=== PATIENT | female | born 1945 | race Caucasian/White ===

== ENCOUNTER 2016-11-10 08:47 | Emergency (ER) | payer OTHER ==
[~2016-11-10] VITALS: Ht 162.6 cm; Wt 82.3 kg
[~2016-11-10 08:47] MED LIST: BIOFREEZE; CARDIZEM CD,CA120 MG PO; CLONAZEPAM0.5 MG PO; DEPAKOTE ER500 MG PO; DITROPAN5 MG PO; LAMOTRIGINE100 MG PO; LISINOPRIL5 MG PO; LO-DOSE ASPIRIN81 M2 PO; MIRALAX255 GM PO; OMEPRAZOLE20 MG PO; RIZATRIPTAN5 MG PO; TOPIRAMATE25 MG PO
[2016-11-10 09:49] LABS: EOSINOPHIL (%) 0.6 % (0-5); HEMATOCRIT 40.2 % (36.0-46.0); IMMATURE GRANULOCYTE (%) 0.2 % (0.0-0.7); IMMATURE GRANULOCYTE COUNT 0.1 K/uL; LYMPHOCYTE COUNT 0.8 K/uL (1.0-2.8); MCH 30.5 PG (29.0-34.0); MCHC 33.6 G/DL (30.0-36.0); MEAN PLAT.VOLUME 10.1 uM^3 (9.5-12.4); MONOCYTE (%) 6.3 % (3-12); MONOCYTE COUNT 0.3 K/uL (0-0.8); NEUTROPHIL (%) 78.6 % (45-76); NEUTROPHIL COUNT 4.2 K/uL (1.8-6.4); PLATELET COUNT 227 K/uL (156-360); RBC DIS.WIDTH-CV 13.5 % (11.8-14.6); RBC DIS.WIDTH-SD 43.7 % (39-53); RED BLOOD COUNT 4.42 M/uL (3.80-5.20); WHITE BLOOD COUNT 5.4 K/uL (4.1-10.2)
[2016-11-10 10:02] LABS: CHLORIDE 114 mEq/L (99-109); POTASSIUM 4.1 mEq/L (3.7-5.4); SODIUM 144 mEq/L (136-147)
[2016-11-10 10:04] LABS: GLUCOSE 104 mg/dL (70-99)
[2016-11-10 10:05] LABS: ANION GAP 8 MEQ/L (2-14)
[2016-11-10 10:08] LABS: GFR ESTIMATE (CALCULATED) 58 mL/min/
[2016-11-10 10:09] LABS: UREA NITROGEN (BUN) 12 mg/dL (9-23)
[2016-11-10] MEDS ORDERED: MOTRIN600 MG PO (10:46)
[2016-11-10 11:03] VITALS: BP 146/89
== END 2016-11-10 11:05 | disposition home or self-care (01) ==
LOC: EME → EDBD 08:47 → EME 11:05
PROVIDERS: Emergency Medicine
DX: S00.83XA Contusion of other part of head, initial encounter (principal); S40.011A Contusion of right shoulder, initial encounter; I10 Essential (primary) hypertension; W18.30XA Fall on same level, unspecified, initial encounter
CPT/HCPCS: 70450; 71010; 72125; 72170; 73030; 73060; 80048; 85025; 93005; 99281; 99284